=== PATIENT | female | born 1930 | race Caucasian/White ===

== ENCOUNTER 2018-03-29 09:20 | Emergency (ER) | payer OTHER ==
[~2018-03-29] VITALS: Ht 157.5 cm; Wt 59.0 kg
[~2018-03-29 09:20] MED LIST: ACETAMINOPHEN-1 EAC1 PO; ACTONEL 35 MG35 M1 PO; ALDACTONE50 MG PO; CALCIUM 500 +1 EAC5 PO; COZAAR 50 MG TA50 M2 PO; LIPITOR10 MG PO; LOPRESSOR 50 MG50 M1 PO; PERCOCET PO; SIMVASTATIN20 MG PO; THERA-M CAPLET1 EACH PO; ULTRAM50 MG PO
[2018-03-29] MEDS ORDERED: CARVEDILOL12.5 MG PO (09:28)
[2018-03-29 10:07] LABS: URINE BILIRUBIN NEGATIVE (Negative); URINE BLOOD NEGATIVE (Negative); URINE COLOR YELLOW; URINE GLUCOSE-RANDOM* NEGATIVE (Negative); URINE KETONES NEGATIVE (Negative); URINE NITRITE-REFLEX NEGATIVE (Negative); URINE PROTEIN (DIPSTICK) NEGATIVE (Negative)
[2018-03-29 10:08] LABS: URINE CLARITY HAZY; URINE LEUKOCYTES-REFLEX TRACE (Negative)
[2018-03-29 10:51] LABS: HEMATOCRIT 36.6 % (37.0-47.0); HEMOGLOBIN 12.8 gm/dL (12.0-15.0); MCH 31.8 pg (26.0-34.0); MCHC 35.1 g/dL (28.0-37.0); MCV 90.6 fL (80.0-100.0); PLATELET COUNT 273 thou/uL (150-400); RBC 4.03 mil/uL (4.20-5.00); RDW 14.1 % (10.5-14.5); WBC 8.5 thou/uL (4.0-11.0)
[2018-03-29 10:59] LABS: CALCIUM 9.1 mg/dL (8.5-10.1); CREATININE 0.6 mg/dL (0.6-1.0); POTASSIUM 3.7 mmol/L (3.5-5.1)
[2018-03-29 11:29] LABS: ABSOLUTE NEUTROPHILS 6.2 thou/uL (1.4-8.2); ANISOCYTOSIS SLIGHT
[2018-03-29] MEDS ORDERED: NORCO 5-325 TA1 EACH PO (13:29)
[2018-03-29 13:58] VITALS: BP 154/98
== END 2018-03-29 13:59 | disposition home or self-care (01) ==
LOC: ER 09:20
PROVIDERS: Emergency Medicine
DX: S32.050A Wedge compression fracture of fifth lumbar vertebra, initial encounter for closed fracture (principal); M48.061 Spinal stenosis, lumbar region without neurogenic claudication; I10 Essential (primary) hypertension; E78.5 Hyperlipidemia, unspecified; Z85.3 Personal history of malignant neoplasm of breast; Z88.8 Allergy status to other drugs, medicaments and biological substances; X58.XXXA Exposure to other specified factors, initial encounter; Y92.89 Other specified places as the place of occurrence of the external cause; Y93.89 Activity, other specified; Y99.8 Other external cause status